=== PATIENT | female | born 1985 | race Caucasian/White ===

== ENCOUNTER → 2025-10-27 | Outpatient (CLI) | payer OTHER, SELFPAY ==
[2025-10-29 20:08] LABS: HPV APTIMA, High Risk Negative (Negative)
== END | disposition home or self-care (01) ==
LOC: LABSPEC 11:56
PROVIDERS: PCP Student in an Organized Health Care Education/Training Program; Visit Provider Nurse Practitioner Women's Health
DX: Z12.4 Encounter for screening for malignant neoplasm of cervix (principal)
CPT/HCPCS: 87624; 88175; G0145